=== PATIENT | female | born 2000 | race Caucasian/White ===

== ENCOUNTER 2019-07-20 19:00 | Emergency (ER) | payer BC ==
[~2019-07-20] VITALS: Ht 157.5 cm; Wt 74.8 kg
[2019-07-20 19:28] VITALS: BP 128/52; Ht 157.5 cm; Wt 74.8 kg
== END 2019-07-20 21:25 | disposition home or self-care (01) ==
LOC: ED 19:00
DX: J03.90 Acute tonsillitis, unspecified (principal)

== ENCOUNTER 2019-10-05 08:41 | Emergency (ER) | payer OTHER ==
[~2019-10-05] VITALS: Ht 157.5 cm; Wt 73.0 kg
[2019-10-05 08:46] VITALS: Ht 157.5 cm; Wt 73.0 kg
[2019-10-05 09:55] VITALS: BP 112/63
== END 2019-10-05 09:55 | disposition home or self-care (01) ==
LOC: ED 08:41
DX: B34.9 Viral infection, unspecified (principal)